=== PATIENT | female | born 1990 | race Caucasian/White ===

== ENCOUNTER → 2017-01-08 | Outpatient (CLI) | payer OTHER ==
[~2017-01-08] MED LIST: AZITHROMYCIN250 MG1 PO; MOTRIN800 MG PO; Motrin PO; Natalcare Rx,Pramile PO; PEPCID20 MG PO; Percocet 5/325,Endoc PO; TYLENOL REGULA325 MG PO; ULTRAM50 MG PO; VIBRAMYCIN100 M2 PO
== END | disposition home or self-care (01) ==
LOC: CT 19:46 → RAD 19:46
DX: R59.0 Localized enlarged lymph nodes (principal); R22.1 Localized swelling, mass and lump, neck; R42 Dizziness and giddiness; R50.9 Fever, unspecified; J03.90 Acute tonsillitis, unspecified
CPT/HCPCS: 70491

== ENCOUNTER 2017-10-24 14:19 | Emergency (ER) | payer OTHER ==
[~2017-10-24] VITALS: Ht 172.7 cm; Wt 116.0 kg
[2017-10-24 15:23] LABS: HEMATOCRIT 36.8 % (36.0-46.0); HEMOGLOBIN 12.2 G/DL (11.9-15.5); MCH 28.4 PG (29.0-34.0); MCHC 33.2 G/DL (30.0-36.0); MCV 85.8 FL (83-99); PLATELET COUNT 227 K/uL (156-360); RBC DIS.WIDTH-CV 13.2 % (11.8-14.6); RBC DIS.WIDTH-SD 40.7 % (39-53); RED BLOOD COUNT 4.29 M/uL (3.80-5.20); WHITE BLOOD COUNT 8.6 K/uL (4.1-10.2)
[2017-10-24 15:39] LABS: ALBUMIN 3.8 g/dL (3.2-4.8); CHLORIDE 105 mEq/L (99-109)
[2017-10-24 15:40] LABS: POTASSIUM 3.9 mEq/L (3.7-5.4); SODIUM 139 mEq/L (136-147)
[2017-10-24 15:42] LABS: GLUCOSE 82 mg/dL (70-99); TOTAL PROTEIN 6.8 g/dL (6.4-8.3)
[2017-10-24 15:44] LABS: TOTAL BILIRUBIN 0.2 mg/dL (0.0-1.0)
[2017-10-24 15:45] LABS: ALKALINE PHOSPHATASE 48 IU/L (3-129); CREATININE 0.7 mg/dL (0.6-1.3); GFR ESTIMATE (CALCULATED) > 59 mL/min/
[2017-10-24 15:47] LABS: AST (GOT) 15 IU/L (2-34); UREA NITROGEN (BUN) 16 mg/dL (9-23)
[2017-10-24 15:48] LABS: ALT (GPT) 14 IU/L (3-49)
[2017-10-24 15:54] LABS: QUANTITATIVE HCG < 4.0 MIU/ML
[2017-10-24 18:22] LABS: APPEARANCE CLOUDY ((CLEAR)); BILIRUBIN NEGATIVE; BLOOD LARGE; COLOR RED ((YELLOW)); GLUCOSE (STRIP) NEGATIVE; KETONES NEGATIVE; LEUKOCYTES TRACE; NITRITE NEGATIVE; PROTEIN (STRIP) 100; SPECIFIC GRAVITY 1.025 (1.000-1.030); UROBILINOGEN 0.2 MG/DL (0.2-1.0)
[2017-10-24 18:34] LABS: BACTERIA 1+ /HPF; EPITHELIAL CELLS 1+ /HPF; MUCUS NONE SEEN /LPF; RED BLOOD CELLS TNTC /HPF (0-5); UCUL ADDED? YES; WHITE BLOOD CELLS 0-5 /HPF (0-5)
[2017-10-24 18:38] VITALS: BP 131/70
== END 2017-10-24 18:40 | disposition home or self-care (01) ==
LOC: EME 14:19
DX: N93.9 Abnormal uterine and vaginal bleeding, unspecified (principal); Z87.891 Personal history of nicotine dependence
CPT/HCPCS: 80053; 81003; 84702; 85027; 87086; 99281; 99284